=== PATIENT | female | born 1950 | race Caucasian/White ===

== ENCOUNTER 2021-02-03 19:08 | Emergency (ER) | payer OTHER, SELFPAY ==
[2021-02-03] VITALS (8 sets, daily range): BP systolic 162–200; BP diastolic 53–82; PULSE 68–87; RESP 14–20; TEMP 36.5; O2SAT 96–99
--- NOTE | ~2021-02-03 | XR_ITS ---
XR hand RT min 3V, XR wrist RT min 3V 02/03/2021 20:03 Indication: Right hand and wrist pain Procedure: 3 views right hand and 3 views right wrist Comparison: No prior studies for comparison. Findings: There are healed distal radial and ulnar fractures. There is a large amount of soft tissue swelling dorsal to the hand and wrist. There is moderate degenerative change of the triscaphe joint. No foreign bodies. No acute fracture or traumatic malalignment. Impression: 1: No acute fracture. Reviewed, dictated and finalized at location A. Impression: 1: No acute fracture. Impression: 1: No acute fracture.
--- NOTE | 2021-02-03 20:44 | ED.GENADULT ---
HPI - General Adult General Chief complaint: Extremity Injury, Upper <Tata Collins PA-C - Last Filed: 02/03/21 21:35> Stated complaint: right hand swelling <LAN Fletcher Last Filed: 02/03/21 21:35> Time Seen by Provider: 02/03/21 19:23 <Tata Collins PA-C - Last Filed: 02/03/21 21:35> Source: patient <LAN Fletcher Last Filed: 02/03/21 21:35> Mode of arrival: ambulatory <LAN Fletcher Last Filed: 02/03/21 21:35> Limitations: no limitations <LAN Fletcher Last Filed: 02/03/21 21:35> History of Present Illness HPI narrative: Patient is 70-year-old female with chief complaint of swollen right hand that [facility] Patient had a controlled fall onto the right hand which resulted in a large hematoma and swelling. Patient can still wiggle her fingers. She reports the hand is only painful when touched. She reports chronic deformity to right wrist from falling 20-30 yrs ago. She reports she was sent over for ED evaluation. She denies any head impact, LOC, or any other symptoms. 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 She also has speech changes from the stroke 19 days ago. She denies any other concerns or complaints. Patient is on ASA and lovenox. <Tata Collins PA-C - Last Filed: 02/03/21 21:35> Related Data Allergies/adverse reactions: Allergies Allergy/AdvReac Type Severity Reaction Status Date / Time No Known Allergies Allergy Verified 01/21/21 22:38 <Tata Collins PA-C - Last Filed: 02/03/21 21:35> Review of Systems Review of Systems: CONSTITUTIONAL: Denies fever, chills, or sweats. EYES: Denies visual changes, redness, or discharge. ENT: Denies rhinorrhea, congestion, sore throat, or otalgia. CARDIOVASCULAR: Denies chest pain, palpitations, or edema. RESPIRATORY: Denies cough or dyspnea. GASTROINTESTINAL: Denies abdominal pain, nausea, vomiting, or diarrhea. GENITOURINARY: Denies dysuria or hematuria. SKIN: Reports swelling to right hand Denies rash or itching. MUSCULOSKELETAL: Denies back pain, myalgia, or joint pain NEUROLOGIC: Denies headache, numbness, dizziness, or weakness. PSYCHIATRIC: Denies anxiety or depression. <Tata Collins PA-C - Last Filed: 02/03/21 21:35> [facility] Past Medical History Medical History: Medical History (Updated 02/03/21 @ 21:32 by Tata Collins PA-C) Alcohol abuse History of alcohol abuse Hyperlipidemia Hypertension <Tata Collins PA-C - Last Filed: 02/03/21 21:35> Surgical History Surgical History: Surgical History (Updated 01/22/21 @ 14:46 by Natasha Reese DO) History of tubal ligation <Tata Collins PA-C - Last Filed: 02/03/21 21:35> Family History Family History: Family History (Updated 01/22/21 @ 00:54 by Jessica Anguiano RN) Mother Acute myocardial infarction Father Acute myocardial infarction <Tata Collins PA-C - Last Filed: 02/03/21 21:35> Social History Social History: Social History (Updated 01/22/21 @ 14:47 by Natasha Reese DO) Social History: patient lives alone in a trailer with 4 steps to enter. She has a daughter, son and [id number] who can assist after rehab. Daughter is emergency department RN at [employer] and works nights. Son works days and [id number] is a [id number] mom. Smoking status: Never smoker Alcohol intake: current Drinks per week: 4 <Tata Collins PA-C - Last Filed: 02/03/21 21:35> Exam Narrative: GENERAL: Well-appearing, well-nourished. HEAD: Normocephalic, atraumatic. EYES: PERRLA and EOMI. CHEST: Clear to auscultation. No respiratory distress. No wheezes rales or rhonchi HEART: Regular rate and rhythm. Normal peripheral pulses. EXTREMITIES: Severe swelling to the dorsal aspect of right hand with bruising. Ring removed from finger. No ROM to right extremity. sensation- patient reports pain with ma
--- NOTE | 2021-02-03 21:15 | PC.NURSE ---
Daughter updated on condition with pt's permission. Yellow band ring cut off of right ring finger due to swelling in right hand and wrist, pt consented to remove ring.
--- NOTE | 2021-02-03 21:28 | PC.NURSE ---
Pt had requested pain medication, Hudson taken to room and pt declines stating it doesn't hurt if I don't move it. Reminded to notify nurse if pain meds needed, verbalizes understanding.
--- NOTE | 2021-02-03 22:31 | PC.NURSE ---
Message left for daughter, Estella, regarding transfer to [facility].
== END 2021-02-04 00:02 | disposition short-term general hospital (02) ==
PROVIDERS: Emergency Provider Emergency Medicine
DX: S60.221A Contusion of right hand, initial encounter (principal); I69.928 Other speech and language deficits following unspecified cerebrovascular disease; E78.5 Hyperlipidemia, unspecified; I10 Essential (primary) hypertension; Z79.82 Long term (current) use of aspirin; W18.39XA Other fall on same level, initial encounter
CPT/HCPCS: 73110; 73130; 99285

== ENCOUNTER 2021-02-09 12:54 | Emergency (ER) | payer OTHER, SELFPAY ==
[2021-02-09 12:55] VITALS: BP 163/69; PULSE 85; RESP 16; TEMP 36.4; O2SAT 97
--- NOTE | 2021-02-09 13:16 | ED.SKABFB ---
HPI - Skin/Abscess/Foreign Bdy General Chief complaint: Skin/Abscess/Foreign Body Stated complaint: hand blister Time Seen by Provider: 02/09/21 12:58 Source: patient and EMS History of Present Illness HPI narrative: 70-year-old female in the rehab hospital status post CVA with right-sided weakness arrives with traumatic blister to dorsal right hand. Per patient she has had this blister she had a hematoma underneath drained and now has developed a blister and was sent here to have it drained. No erythema, no warmth no pus discharge. 3 cm blister with serous fluid noted. Patient states it has been there about 4 days. No fever, no other complaints. States she fell on her arm and is having no new pain in her arm or no new injury. Patient states she has been worked up status post the fall. Related Data Home Medications Medication Instructions Recorded Confirmed No Home Medications 02/05/21 02/05/21 Allergies Allergy/AdvReac Type Severity Reaction Status Date / Time No Known Allergies Allergy Verified 01/21/21 22:38 Review of Systems Review of Systems: CONSTITUTIONAL: no fever, no weight loss, no confusion EYES: no vision changes, no eye pain ENT: no rhinorrhea, no sore throat, no difficulty swallowing CARDIOVASCULAR: no chest pain, no leg edema, no palpitations RESPIRATORY: no cough, no shortness of breath, no hemoptysis GASTROINTESTINAL: no abdominal pain, no nausea, no vomiting, no diarrhea GENITOURINARY: no flank pain, no dysuria, no hematuria SKIN: no rash, no jaundice, traumatic blister R dorsal hand MUSCULOSKELETAL: no back pain, no trauma. NEUROLOGIC: No headache, no dizziness, no focal weakness PSYCHIATRIC: No hallucinations, no suicidal ideation [facility] Past Medical History Medical History Alcohol abuse History of alcohol abuse Hyperlipidemia Hypertension Surgical History Surgical History History of tubal ligation Family History Family History Mother Acute myocardial infarction Father Acute myocardial infarction Social History Social History Social History: patient lives alone in a trailer with 4 steps to enter. She has a daughter, son and [id number] who can assist after rehab. Daughter is emergency department RN at [employer] and works nights. Son works days and [id number] is a [id number] mom. Smoking status: Never smoker Alcohol intake: current Drinks per week: 4 Exam Narrative: General: alert, afebrile, answering all questions appropriately Head: normocephalic, atraumatic Eyes: EOMI bilaterally, anicteric, no injection ENT: moist mucous membranes, oropharynx patent, no rhinorrhea Skin: warm, dry, no pallor R dorsal hand with edema, old bruising and 3cm serous fluid filled blister, no rubor, no pus Neuro: alert, oriented x 3; CN 2-12 grossly intact, mild dysarthria, R sided weakness Upper>;opwer Psych: affect appropriate, though content normal Course Course Emergency Course: No evidence of acute infection. Used an 18-gauge needle to drain serous serosanguineous fluid from traumatic blister. Patient tolerated well. Patient will keep the area clean and dry. Bandage applied. Vital Signs Vital signs: Vital Signs Temperature 36.4 C 02/09/21 12:55 Pulse Rate 85 02/09/21 12:55 Respiratory Rate 16 02/09/21 12:55 Blood Pressure 163/69 H 02/09/21 12:55 Pulse Oximetry 97 02/09/21 12:55 Temperature 36.4 C 02/09/21 12:55 Pulse Rate 85 02/09/21 12:55 Respiratory Rate 16 02/09/21 12:55 Blood Pressure 163/69 H 02/09/21 12:55 Pulse Oximetry 97 02/09/21 12:55 MDM - Skin/Abscess/Foreign Bdy MDM Narrative Medical decision making narrative: Exam most likely direct radiology consistent with traumatic blister,
== END 2021-02-09 13:45 ==
PROVIDERS: Emergency Provider Emergency Medicine
DX: S60.521A Blister (nonthermal) of right hand, initial encounter (principal); I69.951 Hemiplegia and hemiparesis following unspecified cerebrovascular disease affecting right dominant side; E78.5 Hyperlipidemia, unspecified; I10 Essential (primary) hypertension; X58.XXXA Exposure to other specified factors, initial encounter
CPT/HCPCS: 10160; 99282